=== PATIENT | female | born 1940 | race Caucasian/White ===

== ENCOUNTER 2021-04-01 12:00 | Inpatient (IN) | payer MEDICARE, BC ==
--- NOTE | 2021-04-01 12:05 | ERPHSYRPT ---
- History of Present Illness Time Seen by Provider: 04/01/21 12:05 Source: patient, EMS Exam Limitations: clinical condition Physician History: This is an 80-year-old white female patient of Dr. Marks who has significant dementia who was last seen normal per family members and friends 2 days ago. Today, the patient seemed very confused. More so than her baseline dementia. Patient arrives moving all extremities into the emergency department but is not following commands and is somewhat agitated. She does not appear to be in any pain but does not answer any questions and again not following commands. She arrives to her emergency department bed after returning from the CAT scan of her head. Her initial vital signs were heart rate in the 130s, blood pressure is in the 160s to the 180 systolic range her room air oxygenation was 93 to 94%. Allergies/Adverse Reactions: No Known Drug Allergies Allergy (Verified 04/03/15 12:39) Home Medications: Lisinopril 20 mg [Zestril 20 MG] 10 mg PO DAILY 07/05/12 [History] Zolpidem Tartrate [Ambien] 5 mg PO QHS 04/02/14 [History] Aspirin 81 mg PO DAILY 04/03/15 [History] Atorvastatin Calcium 20 mg PO DAILY 04/01/21 [History] Calcium Carb, Citrate/Vit D3 [Calcium + D3 ER Tablet] 1 each PO DAILY 04/01/21 [History] Carvedilol 3.125 mg [Coreg 3.125 MG] 3.125 mg PO BID 04/01/21 [History] Hx Tetanus, Diphtheria Vaccination/Date Given: No Hx Influenza Vaccination/Date Given: No Hx Pneumococcal Vaccination/Date Given: No - Past Medical History Pertinent Past Medical History: Yes Neurological History: No Pertinent History ENT History: Cataracts Cardiac History: High Cholesterol, Hypertension Respiratory History: Bronchitis, COPD Endocrine Medical History: No Pertinent History Musculoskeletal History: Osteoporosis GI Medical History: Ulcer History: No Pertinent History Psycho-Social History: Depression Female Reproductive Disorders: Breast Cancer - Past Surgical History Past Surgical History: Yes Neuro Surgical History: No Pertinent History Cardiac: No Pertinent History Respiratory: No Pertinent History Gastrointestinal: Appendectomy Genitourinary: No Pertinent History Musculoskeletal: No Pertinent History Female Surgical History: Lumpectomy Other Surgical History: C-Sections, right eye cataract surgery - Social History Smoking Status: Current every day smoker How long have you smoked: 40years Exposure to second hand smoke: No Drug Use: none Patient Lives Alone: No - Nursing Vital Signs Nursing Vital Signs: Initial Vital Signs Temperature 98.2 F 04/01/21 12:24 Pulse Rate 129 H 04/01/21 12:24 Respiratory Rate 18 04/01/21 12:24 Blood Pressure 191/108 04/01/21 12:24 O2 Sat by Pulse Oximetry 95 04/01/21 12:24 Pain Scale Pain Intensity 0 - Course Nursing assessment & vital signs reviewed: Yes EKG Interpreted by Me: RATE (131), Sinus Tach, NORMAL AXIS, NORMAL INTERVALS, NORMAL QRS, NORMAL ST-T, Other (No acute ischemic changes on today's EKG. The sinus tachycardia is persistent when compared to EKG dated 04/03/2015) Ordered Tests: Active Orders 24 hr Category Date Time Status Nursing Services Manager STAT Care 04/01/21 12:21 Active Catheter-Em[place] Paige STAT Care 04/01/21 12:20 Active EKG-ER Only STAT Care 04/01/21 12:20 Active IV Insertion STAT Care 04/01/21 12:20 Active NPO (ED) STAT Care 04/01/21 12:20 Active NPO (ED) STAT Care 04/01/21 13:49 Active Pulse Oximetry (ED) STAT Care 04/01/21 12:20 Active HEAD WITHOUT CONTRAST [CT] Stat Exams 04/01/21 12:01 Completed CBC W DIFF Stat Lab 04/01/21 12:20 Completed CMP Stat Lab 04/01/21 12:20 Completed CULTURE,URINE Stat Lab 04/01/21 13:02 Received UA W/RFX UR CULTURE Stat Lab 04/01/21 13:02 Completed Urine Triage Profile Stat Lab 04/01/21 13:50 Completed Medication Summary Generic Name Dose Route Start Last Admin Trade Name Freq PRN Reason Stop Dose Admin Sodium Chloride 1,000 mls @ 100 mls/hr 04/01/21 12:30 04/01/21 12:36 Sodium Chloride 0.9% 1000 Ml IV 05/01/21 12:29 100 mls/hr .Q10H DARREL Administration Discontinued Medications Generic Name Dose Route Start Last Admin Trade Name Freq PRN Reason Stop Dose Admin Hydralazine HCl 10 mg 04/01/21 14:59 04/01/21 15:11 Hydralazine Hcl 20 Mg/Ml Vial IV 04/01/21 15:00 10 mg STAT ONE Administration Hydralazine HCl Confirm 04/01/21 15:02 Hydralazine Hcl 20 Mg/Ml Vial Administered 04/01/21 15:03 Dose 20 mg .ROUTE .STK-MED ONE Ceftriaxone Sodium/Dextrose 1 g in 50 mls @ 100 mls/hr 04/01/21 13:51 04/01/21 15:11 Rocephin 1 Gm-D5w 50 Ml Bag IV 04/01/21 14:20 Infused STAT STA Infusion Ceftriaxone Sodium/Dextrose Confirm 04/01/21 14:14 Rocephin 1 Gm-D5w 50 Ml Bag Administered 04/01/21 14:15 Dose 1 g in 50 mls @ ud IV .STK-MED ONE Metoprolol Tartrate 5 mg 04/01/21 13:50 04/01/21 14:09 Metoprolol Tartrate 5 Mg/5 Ml Injection IV 04/01/21 13:51 5 mg STAT ONE Administration Metoprolol Tartrate Confirm 04/01/21 14:06 Metoprolol Tartrate 5 Mg/5 Ml Injection Administered 04/01/21 14:07 Dose 5 mg IV .STK-MED ONE Lab/Rad Data: Laboratory Result Diagrams 04/01/21 12:20 04/01/21 12:20 Laboratory Results 04/01/21 04/01/21 04/01/21 Range/Units Unknown 14:57 13:50 WBC (4.0-10.5) K/mm3 RBC (4.1-5.4) M/mm3 Hgb (12.0-16.0) gm/dl Hct (35-47) % MCV (78-100) fl MCH (26-32) pg MCHC (32-36) g/dl RDW (11.5-14.0) % Plt Count (150-450) K/mm3 MPV (7.5-11.0) fl Gran % (36.0-66.0) % Eos # (Auto) (0-0.5) Absolute Lymphs (auto) (1.0-4.6) Absolute Monos (auto) (0.0-1.3) Lymphocytes % (24.0-44.0) % Monocytes % (0.0-12.0) % Eosinophils % (0.00-5.0) % Basophils % (0.0-0.4) % Absolute Granulocytes (1.4-6.9) Basophils # (0-0.4) Sodium (137-145) mmol/L Potassium (3.5-5.1) mmol/L Chloride (98-107) mmol/L Carbon Dioxide (22-30) mmol/L Anion Gap (5-15) MEQ/L BUN (7-17) mg/dL Creatinine (0.52-1.04) mg/dL Estimated GFR ML/MIN Glucose (74-106) mg/dL Calcium (8.4-10.2) mg/dL Total Bilirubin (0.2-1.3) mg/dL AST (14-36) U/L ALT (0-35) U/L Alkaline Phosphatase (38-126) U/L Ammonia < 9 L (9-30) umol/L Serum Total Protein (6.3-8.2) g/dL Albumin (3.5-5.0) g/dL Urine Color (YELLOW) Urine Appearance (CLEAR) Urine pH (5-6) Ur Specific [place] (1.005-1.025) Urine Protein (Negative) Urine Ketones (NEGATIVE) Urine Blood (0-5) Vitaliy/ul Urine Nitrite (NEGATIVE) Urine Bilirubin (NEGATIVE) Urine Urobilinogen (0-1) mg/dL Ur Leukocyte Esterase (NEGATIVE) Urine WBC (Auto) (0-5) /HPF Urine RBC (Auto) (0-2) /HPF U Hyaline Cast (Auto) (0-2) /LPF U Epithel Cells (Auto) (FEW) /HPF Urine Bacteria (Auto) (NEGATIVE) /HPF Urine Mucus (Auto) (NEGATIVE) /HPF Urine Culture Reflexed (NO) Urine Glucose (NEGATIVE) mg/dL Urine Opiates Level NEGATIVE (NEGATIVE) Ur Methadone NEGATIVE (NEGATIVE) Urine Barbiturates NEGATIVE (NEGATIVE) Ur Phencyclidine (PCP) NEGATIVE (NEGATIVE) Urine Amphetamine NEGATIVE (NEGATIVE) U Benzodiazepine Level NEGATIVE (NEGATIVE) Urine Cocaine NEGATIVE (NEGATIVE) Urine Marijuana (THC) NEGATIVE (NEGATIVE) Influenza Type A Ag NEGATIVE (NEGATIVE) Influenza Type B Ag NEGATIVE (NEGATIVE) RSV (PCR) NEGATIVE (Negative) SARS-CoV-2 (PCR) NEGATIVE (NEGATIVE) 04/01/21 04/01/21 04/01/21 Range/Units 13:02 12:20 12:20 WBC 16.2 H (4.0-10.5) K/mm3 RBC 5.51 H (4.1-5.4) M/mm3 Hgb 15.6 (12.0-16.0) gm/dl Hct 46.9 (35-47) % MCV 85.1 (78-100) fl MCH 28.3 (26-32) pg MCHC 33.3 (32-36) g/dl RDW 16.1 H (11.5-14.0) % Plt Count 389 (150-450) K/mm3 MPV 11.3 H (7.5-11.0) fl Gran % 88.8 H (36.0-66.0) % Eos # (Auto) 0.01 (0-0.5) Absolute Lymphs (auto) 0.80 L (1.0-4.6) Absolute Monos (auto) 0.98 (0.0-1.3) Lymphocytes % 4.9 L (24.0-44.0) % Monocytes % 6.1 (0.0-12.0) % Eosinophils % 0.1 (0.00-5.0) % Basophils % 0.1 (0.0-0.4) % Absolute Granulocytes 14.38 H (1.4-6.9) Basophils # 0.02 (0-0.4) Sodium 144 (137-145) mmol/L Potassium 5.3 H (3.5-5.1) mmol/L Chloride 105 (98-107) mmol/L Carbon Dioxide 20 L (22-30) mmol/L Anion Gap 24.1 H (5-15) MEQ/L BUN 52 H (7-17) mg/dL Creatinine 2.17 H (0.52-1.04) mg/dL Estimated GFR 23.2 ML/MIN Glucose 131 H (74-106) mg/dL Calcium 9.7 (8.4-10.2) mg/dL Total Bilirubin 1.10 (0.2-1.3) mg/dL AST 41 H (14-36) U/L ALT 23 (0-35) U/L Alkaline Phosphatase 113 (38-126) U/L Ammonia (9-30) umol/L Serum Total Protein 7.8 (6.3-8.2) g/dL Albumin 4.7 (3.5-5.0) g/dL Urine Color CARLOS ENRIQUE (YELLOW) Urine Appearance CLOUDY (CLEAR) Urine pH 5.0 (5-6) Ur Specific [place] 1.028 (1.005-1.025) Urine Protein >=500 (Negative) Urine Ketones TRACE (NEGATIVE) Urine Blood MODERATE (0-5) Vitaliy/ul Urine Nitrite NEGATIVE (NEGATIVE) Urine Bilirubin NEGATIVE (NEGATIVE) Urine Urobilinogen NEGATIVE (0-1) mg/dL Ur Leukocyte Esterase LARGE (NEGATIVE) Urine WBC (Auto) >100 (0-5) /HPF Urine RBC (Auto) 16-25 (0-2) /HPF U Hyaline Cast (Auto) 3-5 (0-2) /LPF U Epithel Cells (Auto) RARE (FEW) /HPF Urine Bacteria (Auto) MODERATE (NEGATIVE) /HPF Urine Mucus (Auto) SLIGHT (NEGATIVE) /HPF Urine Culture Reflexed ORDERED SEPARATELY (NO) Urine Glucose NEGATIVE (NEGATIVE) mg/dL Urine Opiates Level (NEGATIVE) Ur Methadone (NEGATIVE) Urine Barbiturates (NEGATIVE) Ur Phencyclidine (PCP) (NEGATIVE) Urine Amphetamine (NEGATIVE) U Benzodiazepine Level (NEGATIVE) Urine Cocaine (NEGATIVE) Urine Marijuana (THC) (NEGATIVE) Influenza Type A Ag (NEGATIVE) Influenza Type B Ag (NEGATIVE) RSV (PCR) (Negative) SARS-CoV-2 (PCR) (NEGATIVE) - Progress Progress: improved, re-examined Progress Note: 04/01/21 14:01 CAT scan of the head without contrast when compared to CAT scan without contrast performed on 03/24/2015 shows a small, old left cerebellar infarct. There is atrophy and degenerative microischemia that is within normal limits for her age. There are no gross acute intracranial abnormalities. Discussed with : Phil Counseled pt/family regarding: lab results, diagnosis, rad results - Departure Departure Disposition: In-patient Admission Clinical Impression: Altered mental status, Urinary tract infection, Sinus tachycardia, Hypertension Condition: Fair Critical Care Time: Yes Critical Care Time(excluding separately billable procedures): Critical 30-74 mins (30 minutes) Referrals: DIANA MARKS [Primary Care Provider] - Follow up/PCP as directed
--- NOTE | 2021-04-01 12:19 | XRAY ---
Indication: Altered mental status. Stroke. Multiple contiguous axial images obtained through the head without contrast. Comparison: March 24, 2015. Study is slightly degraded by motion artifact throughout. Again age-appropriate global atrophy with now mild periventricular degenerative micro-ischemia bilaterally. Left cerebellum demonstrates new small focus of old infarct. No gross acute intracranial hemorrhage, abnormal extra-axial fluid collection, or mass effect. Fourth ventricle is midline without hydrocephalus. Bony calvarium grossly intact. Visualized paranasal sinuses and mastoid air cells are clear. Impression: 1. Motion artifact. 2. 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 3. Atrophy and degenerative micro-ischemia within normal limits for patient's age. 4. No gross acute intracranial abnormalities.
[2021-04-01] MEDS ORDERED: Sodium Chloride 0.9% 1000 ML 1,000 ML IV SCH ×2 (12:30→18:07)
[2021-04-01 12:50] LABS: ALBUMIN 4.7 g/dL (3.5-5.0); ANION GAP 24.1 MEQ/L (5-15); BILIRUBIN,TOTAL 1.1 mg/dL (0.2-1.3); Calcium 9.7 mg/dL (8.4-10.2); Creatinine 1 2.17 mg/dL (0.52-1.04); EST GLOMERULAR FILTRATION RATE 23.2 ML/MIN; Potassium 5.3 mmol/L (3.5-5.1); Total Protein 7.8 g/dL (6.3-8.2)
[2021-04-01 13:00] LABS: Absolute Neutrophil Ct (ANC) 14.38 (1.4-6.9); Basophil (Absolute #) 0.02 (0-0.4); Eosinophil % 0.1 % (0.00-5.0); Eosinophil (Absolute #) 0.01 (0-0.5); Hematocrit 46.9 % (35-47); Hemoglobin 15.6 gm/dl (12.0-16.0); Lymphocytes % 4.9 % (24.0-44.0); Mean Cell Volume 85.1 fl (78-100); Mean Corpuscular Hemoglobin 28.3 pg (26-32); Mean Corpuscular Hgb Concent. 33.3 g/dl (32-36); Mean Platelet Volume 11.3 fl (7.5-11.0); Monocyte (Absolute #) 0.98 (0.0-1.3); Monocytes % 6.1 % (0.0-12.0); Neutrophil % 88.8 % (36.0-66.0); Platelet Count 389 K/mm3 (150-450); Red Blood Count 5.51 M/mm3 (4.1-5.4); Red Cell Distribution Width 16.1 % (11.5-14.0); White Blood Count 16.2 K/mm3 (4.0-10.5)
[2021-04-01 13:36] LABS: Appearance CLOUDY (CLEAR); Bacteria MODERATE /HPF (NEGATIVE); Bilirubin NEGATIVE (NEGATIVE); Blood MODERATE Ery/ul (0-5); Epithelial Cells RARE /HPF (FEW); Glucose NEGATIVE (NEGATIVE); Ketones TRACE (NEGATIVE); Leukocyte Esterase LARGE (NEGATIVE); Mucus SLIGHT /HPF (NEGATIVE); Nitrite NEGATIVE (NEGATIVE); Protein,Urine Dip >=500 (Negative); Specific Gravity 1.028 (1.005-1.025); Urobilinogen NEGATIVE mg/dL (0-1); WBC >100 /HPF (0-5)
[2021-04-01] MEDS ORDERED: LOPRESSOR 5 MG/5 ML INJECTION IV ONE ×2 (13:50→14:06)
[2021-04-01] MEDS ORDERED: ROCEPHIN 1 Gm-D5w 50 ml Bag** 1 G/50 ML IVPB IV STA (13:51)
[2021-04-01] MEDS ORDERED: ROCEPHIN 1 Gm-D5w 50 ml Bag** 1 G/50 ML IVPB IV ONE (14:14)
[2021-04-01] MEDS ORDERED: APRESOLINE 20 MG/ML INJ IV ONE ×2 (14:59→17:14)
[2021-04-01] MEDS ORDERED: APRESOLINE 20 MG/ML INJ ONE ×2 (15:02→17:14)
[2021-04-01 15:11] LABS: Amphetamine,Urine NEGATIVE (NEGATIVE); Barbiturate,Urine NEGATIVE (NEGATIVE); Benzodiazepine,Urine NEGATIVE (NEGATIVE); Cocaine,Urine NEGATIVE (NEGATIVE); Methadone,Urine NEGATIVE (NEGATIVE); Opiate,Urine NEGATIVE (NEGATIVE); PCP,Urine NEGATIVE (NEGATIVE); THC,Urine NEGATIVE (NEGATIVE)
[2021-04-01 15:42] LABS: INFLUENZA A NEGATIVE (NEGATIVE); INFLUENZA B NEGATIVE (NEGATIVE); RESPIRATORY SYNCTIAL VIRUS NEGATIVE (Negative); SARS-CoV-2 Xpert Express NEGATIVE (NEGATIVE)
[2021-04-01] MEDS ORDERED: Zofran 4 MG/2 ML VIAL IV PRN (18:07)
[2021-04-01] MEDS ORDERED: FEVERALL 650 MG PR PRN (18:07)
[2021-04-01] MEDS ORDERED: Haldol 5 MG IM ONE (18:44)
[2021-04-01] MEDS: Ativan 2 MG/1 ML VIAL IV PRN ×2 (18:55→22:27)
[2021-04-01] MEDS: VASOTEC I.V. 2.5 MG IV SCH (19:06)
[2021-04-02] MEDS: VASOTEC I.V. 2.5 MG IV SCH ×2 (00:22→05:15)
[2021-04-02] MEDS: Ativan 2 MG/1 ML VIAL IV PRN (03:31)
[2021-04-02 05:23] LABS: Absolute Neutrophil Ct (ANC) 13.82 (1.4-6.9); Basophil (Absolute #) 0.04 (0-0.4); Eosinophil % 0.1 % (0.00-5.0); Eosinophil (Absolute #) 0.01 (0-0.5); Hematocrit 40.3 % (35-47); Hemoglobin 13.1 gm/dl (12.0-16.0); Lymphocyte (Absolute #) 1.09 (1.0-4.6); Lymphocytes % 6.7 % (24.0-44.0); Mean Cell Volume 87.2 fl (78-100); Mean Corpuscular Hemoglobin 28.4 pg (26-32); Mean Corpuscular Hgb Concent. 32.5 g/dl (32-36); Mean Platelet Volume 10.7 fl (7.5-11.0); Monocyte (Absolute #) 1.33 (0.0-1.3); Monocytes % 8.2 % (0.0-12.0); Neutrophil % 84.8 % (36.0-66.0); Platelet Count 261 K/mm3 (150-450); Red Blood Count 4.62 M/mm3 (4.1-5.4); Red Cell Distribution Width 16.1 % (11.5-14.0); White Blood Count 16.3 K/mm3 (4.0-10.5)
[2021-04-02 05:49] LABS: ANION GAP 19.3 MEQ/L (5-15); BILIRUBIN,TOTAL 0.6 mg/dL (0.2-1.3); Calcium 8.9 mg/dL (8.4-10.2); Creatinine 1 1.79 mg/dL (0.52-1.04); Potassium 3.9 mmol/L (3.5-5.1); Total Protein 6.4 g/dL (6.3-8.2)
[2021-04-02] MEDS: VASOTEC I.V. 2.5 MG IV PRN ×2 (07:57→20:15)
[2021-04-02] MEDS ORDERED: Levofloxacin 500MG/100ML D5W 500 MG/100 ML BAG IV SCH (10:00)
[2021-04-02] MEDS ORDERED: ROCEPHIN 1 Gm-D5w 50 ml Bag** 1 G/50 ML IVPB IV SCH (10:00)
[2021-04-02] MEDS ORDERED: ENOXAPARIN SODIUM SQ SCH (10:00)
[2021-04-02] MEDS: ENOXAPARIN SODIUM SQ SCH (11:38)
[2021-04-02] MEDS: Levaquin 250MG/50ML D5W 250 MG/50 ML BAG IV SCH (11:38)
[2021-04-02] MEDS: Dextrose 5% -0.45 NaCl 1000 ML 1,000 ML IV SCH (11:38)
[2021-04-03] MEDS: VASOTEC I.V. 2.5 MG IV PRN (02:26)
[2021-04-03] MEDS ORDERED: APRESOLINE 20 MG/ML INJ IV ONE (04:13)
[2021-04-03] MEDS: Dextrose 5% -0.45 NaCl 1000 ML 1,000 ML IV SCH (04:32)
[2021-04-03 05:38] LABS: Absolute Neutrophil Ct (ANC) 12.31 (1.4-6.9); Basophil (Absolute #) 0.02 (0-0.4); Eosinophil % 0.1 % (0.00-5.0); Eosinophil (Absolute #) 0.01 (0-0.5); Hematocrit 41.6 % (35-47); Hemoglobin 13.5 gm/dl (12.0-16.0); Lymphocyte (Absolute #) 1.25 (1.0-4.6); Lymphocytes % 8.3 % (24.0-44.0); Mean Cell Volume 87.2 fl (78-100); Mean Corpuscular Hemoglobin 28.3 pg (26-32); Mean Corpuscular Hgb Concent. 32.5 g/dl (32-36); Mean Platelet Volume 11.1 fl (7.5-11.0); Monocyte (Absolute #) 1.42 (0.0-1.3); Monocytes % 9.5 % (0.0-12.0); Platelet Count 238 K/mm3 (150-450); Red Blood Count 4.77 M/mm3 (4.1-5.4); Red Cell Distribution Width 16.2 % (11.5-14.0)
[2021-04-03 06:11] LABS: ALBUMIN 3.5 g/dL (3.5-5.0); ANION GAP 13.7 MEQ/L (5-15); BILIRUBIN,TOTAL 0.7 mg/dL (0.2-1.3); Calcium 8.2 mg/dL (8.4-10.2); Creatinine 1 1.28 mg/dL (0.52-1.04); EST GLOMERULAR FILTRATION RATE 42.6 ML/MIN; Potassium 3.6 mmol/L (3.5-5.1)
[2021-04-03] MEDS: ENOXAPARIN SODIUM SQ SCH (08:44)
[2021-04-03] MEDS: Levaquin 250MG/50ML D5W 250 MG/50 ML BAG IV SCH (08:44)
--- NOTE | 2021-04-03 08:59 | PCM.NOTE ---
Date and Time: 04/03/21854 Subjective Assessment: patient has apparently been difficult to arouse since receiving IV ativan 30 hours ago. she opens her eyes when I ask questions but does not respond to questions. Objective Exam General Appearance: no apparent distress Neurologic Exam: other (tremor present in sade hands, asterixis), No alert, No oriented x 3, No cooperative Skin Exam: normal color, warm, dry Wound Assessment: Skin/Wound Assessment Wound/Incision Assessment Start: 04/01/21 18:48 Text: Status: Active Freq: Q6H Protocol: Document 04/03/21 06:00 BA (Rec: 04/03/21 06:53 BA [id number]) Wound/Incision Assessment Elbow Wound Assessment Admission Wound Type Scratch Dressing Status Dry & Intact Drainage Amount None General Appearance Well Approximated,Clean/Dry Comment scratch ,shearing; barrier cream applied. . Respiratory Exam: normal breath sounds, lungs clear, No respiratory distress Cardiovascular Exam: regular rate/rhythm, normal heart sounds Gastrointestinal/Abdomen Exam: soft, No tenderness, No mass Extremity Exam: normal inspection, normal range of motion OBJECTIVE DATA Vital Signs: Vital Signs - 24 hr Temp Pulse Resp BP BP Pulse Ox 04/03/21 07:40 96.8 F 115 H 18 166/75 97 04/03/21 04:00 96.4 F 105 H 16 224/103 95 04/03/21 00:00 96.4 F 125 H 16 183/100 96 04/02/21 20:04 96.2 F 120 H 16 202/96 96 04/02/21 18:07 94 L 04/02/21 18:00 97.9 F 107 H 12 136/86 94 L 04/02/21 12:30 179/80 04/02/21 12:02 98.1 F 120 H 18 198/92 95 04/02/21 09:09 124/76 110 H Pain Assessment - Last Documented Pain Intensity 0 Intake and Output: Intake & Output 03/31/21 04/01/21 04/02/21 04/03/21 11:59 11:59 11:59 11:59 Intake Total 0 1948 Output Total 425 1100 Balance -425 848 Weight 46.2 kg 46.1 kg Lab Results: Lab Results-Last 24 Hours 04/03/21 04/03/21 Range/Units 04:50 04:50 WBC 15.0 H (4.0-10.5) K/mm3 RBC 4.77 (4.1-5.4) M/mm3 Hgb 13.5 (12.0-16.0) gm/dl Hct 41.6 (35-47) % MCV 87.2 (78-100) fl MCH 28.3 (26-32) pg MCHC 32.5 (32-36) g/dl RDW 16.2 H (11.5-14.0) % Plt Count 238 (150-450) K/mm3 MPV 11.1 H (7.5-11.0) fl Gran % 82.0 H (36.0-66.0) % Eos # (Auto) 0.01 (0-0.5) Absolute Lymphs (auto) 1.25 (1.0-4.6) Absolute Monos (auto) 1.42 H (0.0-1.3) Lymphocytes % 8.3 L (24.0-44.0) % Monocytes % 9.5 (0.0-12.0) % Eosinophils % 0.1 (0.00-5.0) % Basophils % 0.1 (0.0-0.4) % Absolute Granulocytes 12.31 H (1.4-6.9) Basophils # 0.02 (0-0.4) Sodium 141 (137-145) mmol/L Potassium 3.6 (3.5-5.1) mmol/L Chloride 111 H (98-107) mmol/L Carbon Dioxide 20 L (22-30) mmol/L Anion Gap 13.7 (5-15) MEQ/L BUN 33 H (7-17) mg/dL Creatinine 1.28 H (0.52-1.04) mg/dL Estimated GFR 42.6 ML/MIN Glucose 153 H (74-106) mg/dL Calcium 8.2 L (8.4-10.2) mg/dL Total Bilirubin 0.70 (0.2-1.3) mg/dL AST 323 H (14-36) U/L ALT 44 H (0-35) U/L Alkaline Phosphatase 86 (38-126) U/L Serum Total Protein 6.0 L (6.3-8.2) g/dL Albumin 3.5 (3.5-5.0) g/dL Radiology Exams: Radiology Procedures Category Date Time Status CHEST 1 VIEW (PORTABLE) Routine Exams 04/03/21 08:54 Ordered HEAD WITHOUT CONTRAST [CT] Stat Exams 04/01/21 12:01 Completed Multi-Disciplinary Progress Notes: Multi-Disciplinary Progress Notes 04/02/21 11:19 Pharmacy Note by Brock King Lovenox dose reduced to 30mg per renal dosing policy. Estimated crcl is 18ml/min. Initialized on 04/02/21 11:19 - END OF NOTE Assessment/Plan (1) Altered mental status Current Visit: Yes Status: Acute Assessment & Plan: ast increasing, exam suspicious for hepatic encephalopathy, urine culture has been negative so source of infection is uncertain. suspect possible liver pathology, i.e. cholangitis or cholecystitis. will change abx selection zosyn for broader coverage to include anaerobes and check ultrasound liver Code(s): R41.82 - ALTERED MENTAL STATUS, UNSPECIFIED (2) Urinary tract infection Current Visit: Yes Status: Acute Code(s): N39.0 - URINARY TRACT INFECTION, SITE NOT SPECIFIED (3) Dementia Current Visit: No Status: Acute Code(s): F03.90 - UNSPECIFIED DEMENTIA WITHOUT BEHAVIORAL DISTURBANCE
[2021-04-03] MEDS ORDERED: Catapres-TTS 1 PATCH TOP SCH (10:00)
[2021-04-03] MEDS: Zosyn 2.25 GM 2.25 GM in Sodium Chloride 100ML MINI-BAG PLUS 100 ML IV SCH ×3 (11:16→23:28)
[2021-04-03] MEDS: APRESOLINE 20 MG/ML INJ IV PRN (16:46)
--- NOTE | 2021-04-03 18:55 | XRAY ---
Indication: Acute mental status change. Comparison: August 03, 2006 Portable chest remains clear again with incidental right lung calcified granuloma. Heart not enlarged with aortic calcifications. Bony thorax intact with mild osteopenia and mild degenerative changes. Impression: Nonacute chest with chronic features Comment: Preliminary interpretation made by [facility]. No critical discrepancy.
[2021-04-03] MEDS ORDERED: [UNRECOGNIZED DRUG - NUTRITION] IV SCH (19:00)
[2021-04-03] MEDS ORDERED: [UNRECOGNIZED DRUG - NUTRITION] IV ONE (19:00)
[2021-04-04] MEDS: APRESOLINE 20 MG/ML INJ IV PRN ×2 (00:16→20:30)
[2021-04-04] MEDS: Zosyn 2.25 GM 2.25 GM in Sodium Chloride 100ML MINI-BAG PLUS 100 ML IV SCH ×3 (05:39→17:01)
--- NOTE | 2021-04-04 07:39 | PCM.NOTE ---
Date and Time: 04/04/21 0736 Subjective Assessment: patient responds to voice and makes eye contact but doesn't speak or answer any of my questions. she was unable to participate in speech therapy evaluation yesterday so TPN was started. Objective Exam General Appearance: no apparent distress Neurologic Exam: alert, oriented x 3 Wound Assessment: Skin/Wound Assessment Wound/Incision Assessment Start: 04/01/21 18 :48 Text: Status: Active Freq: Q6H Protocol: Document 04/04/21 06:00 BA (Rec: 04/04/21 06:23 BA [id number]) Wound/Incision Assessment Elbow Wound Assessment Admission Wound Type Scratch Dressing Status Dry & Intact Drainage Amount None General Appearance Well Approximated,Clean/Dry Comment scratch ,shearing; barrier cream applied.. Respiratory Exam: normal breath sounds, lungs clear, No respiratory distress Cardiovascular Exam: regular rate/rhythm, normal heart sounds Gastrointestinal/Abdomen Exam: soft, No tenderness, No mass OBJECTIVE DATA Vital Signs: Vital Signs - 24 hr Temp Pulse Resp BP BP Pulse Ox 04/04/21 07:23 98.4 F 123 H 16 141/95 96 04/04/21 04:00 97.3 F 124 H 16 167/62 95 04/04/21 00:00 96.9 F 111 H 16 236/102 97 04/03/21 20:00 97.1 F 124 H 16 153/76 94 L 04/03/21 18:00 94 L 04/03/21 16:00 97.1 F 140 H 20 186/119 96 04/03/21 11:44 98.9 F 118 H 16 137/84 94 L 04/03/21 07:40 96.8 F 115 H 18 166/75 97 Pain Assessment - Last Documented Pain Intensity 0 Intake and Output: Intake & Output 04/01/21 04/02/21 04/03/21 04/04/21 11:59 11:59 11:59 11:59 Intake Total 0 1948 1669 Output Total 425 1100 1050 Balance -425 848 619 Weight 46.2 kg 46.1 kg 46.3 kg Lab Results: Lab Results-Last 24 Hours 04/03/21 Range/Units 09:20 Ammonia < 9 L (9-30) umol/L Radiology Exams: Radiology Procedures Category Date Time Status CHEST 1 VIEW (PORTABLE) Routine Exams 04/03/21 08:54 Completed LIVER OR SPLEEN [US] Routine Exams 04/05/21 00:00 Ordered Assessment/Plan (1) Altered mental status Current Visit: Yes Status: Acute Assessment & Plan: patient nonconversant, want to repeat head ct as I suspect a possible ischemic stroke since otherwise her workup has been unrevealing of a source Code(s): R41.82 - ALTERED MENTAL STATUS, UNSPECIFIED (2) Urinary tract infection Current Visit: Yes Status: Acute Assessment & Plan: changed to zosyn due to increased LFTs, liver ultrasound still pending that was ordered yesterday. Code(s): N39.0 - URINARY TRACT INFECTION, SITE NOT SPECIFIED (3) Dementia Current Visit: No Status: Acute Code(s): F03.90 - UNSPECIFIED DEMENTIA WITHOUT BEHAVIORAL DISTURBANCE
[2021-04-04] MEDS: Dextrose 5% -0.45 NaCl 1000 ML 1,000 ML IV SCH ×2 (07:56→08:01)
[2021-04-04] MEDS: ENOXAPARIN SODIUM SQ SCH (08:36)
[2021-04-04 09:41] LABS: Absolute Neutrophil Ct (ANC) 10.52 (1.4-6.9); Basophil (Absolute #) 0.01 (0-0.4); Eosinophil % 0.1 % (0.00-5.0); Eosinophil (Absolute #) 0.01 (0-0.5); Hematocrit 39.1 % (35-47); Lymphocyte (Absolute #) 0.76 (1.0-4.6); Lymphocytes % 6.1 % (24.0-44.0); Mean Cell Volume 86.1 fl (78-100); Mean Corpuscular Hemoglobin 28.6 pg (26-32); Mean Corpuscular Hgb Concent. 33.2 g/dl (32-36); Mean Platelet Volume 11.2 fl (7.5-11.0); Monocyte (Absolute #) 1.15 (0.0-1.3); Monocytes % 9.2 % (0.0-12.0); Neutrophil % 84.5 % (36.0-66.0); Platelet Count 219 K/mm3 (150-450); Red Blood Count 4.54 M/mm3 (4.1-5.4); Red Cell Distribution Width 15.9 % (11.5-14.0); White Blood Count 12.5 K/mm3 (4.0-10.5)
[2021-04-04] MEDS: Haldol 5 MG IM PRN ×2 (10:06→18:24)
[2021-04-04 10:23] LABS: INR 1.1 (0.8-3.0)
[2021-04-04 10:30] LABS: ALBUMIN 3.2 g/dL (3.5-5.0); ANION GAP 11.9 MEQ/L (5-15); BILIRUBIN,TOTAL 0.6 mg/dL (0.2-1.3); Calcium 8.5 mg/dL (8.4-10.2); Creatinine 1 1.28 mg/dL (0.52-1.04); EST GLOMERULAR FILTRATION RATE 42.6 ML/MIN; Total Protein 5.6 g/dL (6.3-8.2)
[2021-04-04] MEDS ORDERED: [UNRECOGNIZED DRUG - NUTRITION] IV SCH ×4 (14:00)
--- NOTE | 2021-04-04 19:05 | XRAY ---
Indication: Follow-up mental status change. Multiple contiguous axial images obtained through the head without contrast. Comparison: April 01, 2021. There remains mild motion artifact limiting study. Stable age-appropriate global atrophy, mild periventricular degenerative microischemia, and small old infarct left cerebellum. No obvious acute intracranial hemorrhage, abnormal extra-axial fluid collection, or mass effect. Fourth ventricle is midline without hydrocephalus. Bony calvarium intact. Visualized paranasal sinuses and mastoid air cells are clear. Impression: 1. Again motion artifact limits exam. 2. Stable atrophy, degenerative microischemia, and small old infarct left cerebellum. 3. No new or acute intracranial abnormalities. Comment: Preliminary interpretation made by [facility]. No critical discrepancy.
[2021-04-04] MEDS: VASOTEC I.V. 2.5 MG IV PRN (23:45)
[2021-04-05] MEDS: Zosyn 2.25 GM 2.25 GM in Sodium Chloride 100ML MINI-BAG PLUS 100 ML IV SCH ×4 (00:04→17:34)
[2021-04-05] MEDS: APRESOLINE 20 MG/ML INJ IV PRN (05:30)
[2021-04-05 05:53] LABS: Hematocrit 36.3 % (35-47); Mean Cell Volume 85.8 fl (78-100); Mean Corpuscular Hemoglobin 28.4 pg (26-32); Mean Corpuscular Hgb Concent. 33.1 g/dl (32-36); Mean Platelet Volume 10.7 fl (7.5-11.0); Platelet Count 198 K/mm3 (150-450); Red Blood Count 4.23 M/mm3 (4.1-5.4); Red Cell Distribution Width 15.8 % (11.5-14.0); White Blood Count 11.8 K/mm3 (4.0-10.5)
[2021-04-05] MEDS ORDERED: HUMALOG SQ PRN (06:53)
[2021-04-05 06:58] LABS: ANION GAP 9.4 MEQ/L (5-15); BILIRUBIN,TOTAL 0.4 mg/dL (0.2-1.3); Calcium 8.1 mg/dL (8.4-10.2); Creatinine 1 1.24 mg/dL (0.52-1.04); EST GLOMERULAR FILTRATION RATE 44.2 ML/MIN; MAGNESIUM 1.8 mg/dL (1.6-2.3); Total Protein 5.7 g/dL (6.3-8.2)
[2021-04-05 07:10] LABS: Potassium 2.7 mmol/L (3.5-5.1)
[2021-04-05 07:35] LABS: ANISOCYTOSIS 1+; BAND 2 % (0.0-2.0); Lymphocytes 9 % (24-44); Monocyte 3 % (0.0-12.0); Neutrophils 86 % (36.0-66.0); Platelet Estimate NORMAL (NORMAL); Total Cells Counted 100
[2021-04-05] MEDS ORDERED: Sodium Chloride 0.9% 500 ML 500 ML IV ONE (10:06)
[2021-04-05] MEDS: POTASSIUM CHLORIDE 20 mEq IN WATER 100ML 20 MEQ/100 ML BAG IV SCH ×2 (10:09→12:27)
[2021-04-05] MEDS: ENOXAPARIN SODIUM SQ SCH (10:10)
--- NOTE | 2021-04-05 10:40 | XRAY ---
Indication: Elevated bilirubin. Two-dimensional right upper quadrant abdominal sonogram performed. Comparison: None Visualized liver and pancreas appears homogeneous in echogenicity without organomegaly or ascites. Gallbladder normally distended with a few tiny gallstones, largest 8mm. No abnormal gallbladder wall thickening or pericholecystic fluid. Common bile duct measures 2.7 mm. No intrahepatic biliary distention. Right kidney is atrophic measuring 5.8 cm in length with a 1 cm exophytic cyst. No suspicious solid renal mass or hydronephrosis. Impression: 1. Cholelithiasis without cholecystitis or biliary distention. 2. Right renal atrophy with small cyst.
[2021-04-05] MEDS ORDERED: [UNRECOGNIZED DRUG - NUTRITION] IV SCH ×4 (10:45)
[2021-04-05] MEDS: VASOTEC I.V. 2.5 MG IV PRN (16:37)
[2021-04-05] MEDS: [UNRECOGNIZED DRUG - NUTRITION] IV SCH ×4 (21:30)
[2021-04-06] MEDS: APRESOLINE 20 MG/ML INJ IV PRN ×2 (02:28→07:53)
[2021-04-06 05:17] LABS: Hematocrit 33.2 % (35-47); Hemoglobin 10.8 gm/dl (12.0-16.0); Mean Cell Volume 87.1 fl (78-100); Mean Corpuscular Hemoglobin 28.3 pg (26-32); Mean Corpuscular Hgb Concent. 32.5 g/dl (32-36); Mean Platelet Volume 10.9 fl (7.5-11.0); Platelet Count 191 K/mm3 (150-450); Red Blood Count 3.81 M/mm3 (4.1-5.4); Red Cell Distribution Width 16.1 % (11.5-14.0); White Blood Count 12.3 K/mm3 (4.0-10.5)
[2021-04-06] MEDS: Zosyn 2.25 GM 2.25 GM in Sodium Chloride 100ML MINI-BAG PLUS 100 ML IV SCH ×4 (05:19→13:12)
[2021-04-06] MEDS: VASOTEC I.V. 2.5 MG IV PRN (05:19)
[2021-04-06 05:42] LABS: ALBUMIN 2.6 g/dL (3.5-5.0); ANION GAP 8.8 MEQ/L (5-15); BILIRUBIN,TOTAL 0.4 mg/dL (0.2-1.3); Creatinine 1 1.15 mg/dL (0.52-1.04); EST GLOMERULAR FILTRATION RATE 48.3 ML/MIN; Potassium 3.5 mmol/L (3.5-5.1)
[2021-04-06] MEDS: ENOXAPARIN SODIUM SQ SCH (13:23)
[2021-04-06] MEDS ORDERED: [UNRECOGNIZED DRUG - OTHER] IV SCH ×5 (14:00)
[2021-04-06] MEDS ORDERED: CLINIMIX E IV SCH ×5 (14:00)
[2021-04-06] MEDS ORDERED: INTRALIPID 20% IV SCH ×5 (14:00)
[2021-04-06] MEDS: [UNRECOGNIZED DRUG - NUTRITION] IV SCH ×4 (16:05)
[2021-04-06 18:38] VITALS: BP 210/90; PULSE 109; O2SAT 97
[2021-04-09 16:55] LABS: Lymphocytes 6 % (24-44); Monocyte 8 % (0.0-12.0); Neutrophils 86 % (36.0-66.0); Total Cells Counted 100
[2021-04-09 16:57] LABS: ANISOCYTOSIS 1+
--- NOTE | 2021-04-20 11:29 | HP ---
CHIEF COMPLAINT: Increasing confusion, dementia. HISTORY OF PRESENT ILLNESS: The patient's family had noted the patient to have increasing and becoming somewhat agitated. She was brought to the emergency room for evaluation and kept in the hospital for evaluation and treatment and probable mcfp placement. The patient's vital signs on admission showed her temperature to be 98.2F, pulse 129, respiratory rate 18 and blood pressure 191/108. O2 saturation 95%. PAST MEDICAL/SURGICAL HISTORY: The patient has history of hypertension, hyperlipidemia. The patient's medical history is otherwise significant for chronic obstructive pulmonary disease, osteoporosis, depression, previous breast cancer. She has had appendectomy, lumpectomy, section and right cataract eye surgery. HOME MEDICATIONS: Lisinopril 20 mg daily, Ambien 5 mg at night, aspirin 81 mg a day, atorvastatin 20 mg a day, calcium tablets twice a day, carvedilol 3.125 mg twice a day. ALLERGIES: NKDA. PHYSICAL EXAMINATION: HEENT: Normocephalic, atraumatic. Pupils equal round reactive to light. Extraocular movements intact. Oropharynx was unable to observe. NECK: Supple without lymphadenopathy, thyromegaly or JVD. CHEST: Appeared to be clear to auscultation. HEART: Rapid but no murmurs, rubs or gallops heard. ABDOMEN: Soft. No palpable masses. EXTREMITIES: Without cyanosis, clubbing or edema. NEUROLOGIC: The patient was essentially unresponsive except to somewhat noxious stimuli. LAB DATA AND TESTS: The patient had an EKG showing sinus tachycardia with no obvious ST depression or elevation. Her UA showed greater than 100 white blood cells per high power field, 16-25 red blood cells, specific gravity 1.028 and greater than 500 protein. Her metabolic panel showed a potassium slightly high at 5.3. Creatinine was 2.17. Nonfasting glucose was 131. AST and ALT were normal. She had white count of 16.2, hemoglobin 15.6 and PLT count was normal at 389,000. ASSESSMENT: A patient with increasing dementia likely worsened secondary to urinary tract infection. Urine cultures have been obtained. She was placed on IV antibiotics. She also receive gentle hydration as she appeared to have acute on chronic renal insufficiency. The likelihood the patient will be candidate for mcfp placement after her acute care hospital setting is over as the patient has been dealing with dementia issues over the past several months to last year or better and they had already expressed the desire to have placed for improved overall health care.
--- NOTE | 2021-04-20 11:39 | DS ---
DISCHARGE DIAGNOSES: 1) URINARY TRACT INFECTION. 2) ACUTE ON CHRONIC RENAL INSUFFICIENCY. 3) DEMENTIA. HOSPITAL COURSE: The patient is an 80-year-old white female who had been experiencing dementia problems at home over the past several months. She apparently had increasing worsening and currently more agitated at home. She was brought to the emergency room and found to have a urinary tract infection. She was brought into the hospital and given IV antibiotics. She appeared to have acute on chronic renal insufficiency so IV fluids were also given. The patient did improve with these. We had evaluation by physical therapy and occupational therapy. The patient was essentially not a candidate for rehab at this time, as she cannot follow commands. The patient was felt to be ready for discharge after treatment of the acute renal insufficiency and antibiotic of Levaquin for urinary tract infection. The patient by 04/06/2021 was able to follow with her eyes but still had no response to verbal stimuli. After discussion with the family, the patient was considered to be ready for discharge either to Hospice care or to being admitted to a nursing care facility. She will continue the Levaquin for additional three days and follow up in the office if possible in the next week.
== END 2021-04-06 18:47 | DRG 690 ==
LOC: ED 12:00 → MED SURG 17:28
PROVIDERS: ADMIT Family Medicine; ATTEND Family Medicine
DX: N39.0 Urinary tract infection, site not specified (principal); R41.82 Altered mental status, unspecified; I16.0 Hypertensive urgency; R00.0 Tachycardia, unspecified; F03.90 Unspecified dementia, unspecified severity, without behavioral disturbance, psychotic disturbance, mood disturbance, and anxiety; Z20.828 Contact with and (suspected) exposure to other viral communicable diseases; Z79.899 Other long term (current) drug therapy; I12.9 Hypertensive chronic kidney disease with stage 1 through stage 4 chronic kidney disease, or unspecified chronic kidney disease; N18.9 Chronic kidney disease, unspecified
CPT/HCPCS: 0241U; 36000; 36415; 51702; 70450; 71045; 76705; 80053; 80307; 81001; 82140; 82947; 83735; 84132; 85025; 85610; 87086; 92526; 92610; 93005; 93041; 94760; 96365; 96374; 96375; 96376; 99285; 99291; J0360; J0696; J1630; J1650; J1956; J2060; J2543; J3480; A9270-GY

== ENCOUNTER 2021-05-05 09:20 | Emergency (ER) | payer MEDICARE, BC ==
[2021-05-05 09:33] VITALS: BP 121/54
[2021-05-05] MEDS ORDERED: NORCO 5/325 MG PO ONE (09:49)
[2021-05-05] MEDS ORDERED: NORCO 5/325 MG ONE (09:52)
--- NOTE | 2021-05-05 09:56 | ERPHSYRPT ---
- History of Present Illness Time Seen by Provider: 05/05/21 09:23 Source: patient, EMS, [facility] records Exam Limitations: clinical condition Patient Subjective Stated Complaint: " I fell " Triage Nursing Assessment: Pt presents to ER from ambulance from [facility]. 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 Pt has noted dementia and unable to answer questions appropriately. Pt is alert. Pt skin is pink, warm, and dry. Pt complains of neck pain, c-collar in place per EMS. Pt complains of left hip pain upon exam. Pt respirations are easy and unlabored. EMS state that pt did not have any LOC. Pt doesn't have any obvious trauma or deformities, does have some tenderness to neck and left hip. Pt has no further complaints. Physician History: 81-year-old female with history of dementia currently resident of prison was walking in the dining area, slipped on the wet floor on her left hip without loss of consciousness. Unsure about hitting her head. She is complaining of pain in the neck and left hip. C-collar is applied prior to arrival. Denies any chest or abdominal pain, no back pain. Not a good historian and history is limited secondary to her dementia. Per prison patient's level of consciousness attacked her baseline. Occurred: just prior to arrival Reason for Fall: slipped Injuries/Pain Location: neck, pelvis, lower extremity Loss of Consciousness: no loss of consciousness Quality: aching Severity of Pain-Max: moderate Severity of Pain-Current: mild Associated Symptoms (Fall): extremity injury, No back pain, No chest pain, No shortness of breath, No slurred speech, No vomiting Allergies/Adverse Reactions: No Known Drug Allergies Allergy (Verified 05/05/21 09:33) Home Medications: Lisinopril 20 mg [Zestril 20 MG] 20 mg PO DAILY 07/05/12 [History] Zolpidem Tartrate [Ambien] 5 mg PO QHS 04/02/14 [History] Aspirin 81 mg PO DAILY 04/03/15 [History] Atorvastatin Calcium 20 mg PO DAILY 04/01/21 [History] Calcium Carb, Citrate/Vit D3 [Calcium + D3 ER Tablet] 1 each PO DAILY 04/01/21 [History] Carvedilol 3.125 mg [Coreg 3.125 MG] 3.125 mg PO BID 04/01/21 [History] Amlodipine Besylate 5 mg [Norvasc 5 mg] 5 mg PO DAILY 04/02/21 [History] Gabapentin 100 mg [Neurontin 100 MG] 100 mg PO HS 04/02/21 [History] Melatonin 5 mg PO HS 05/05/21 [History] Hx Tetanus, Diphtheria Vaccination/Date Given: No (UNKNOWN) Hx Influenza Vaccination/Date Given: No (UNKNOWN) Hx Pneumococcal Vaccination/Date Given: No (UNKNOWN) Immunizations Up to Date: No (UNKNOWN) Travel Risk - International Travel Have you traveled outside of the country in past 3 weeks: No - Coronavirus Screening Are you exhibiting any of the following symptoms?: No Close contact with a COVID-19 positive Pt in past 14-21 Days: No - Vaccine Status Have you recieved a Covid-19 vaccination: (UNKNOWN) 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 - Vaccination Dates Dates if Unknown: UNKNOWN - Review of Systems All Other Systems: Unable due to dementia - Past Medical History Pertinent Past Medical History: Yes Neurological History: Dementia ENT History: Cataracts Cardiac History: High Cholesterol, Hypertension Respiratory History: Bronchitis, COPD Endocrine Medical History: No Pertinent History Musculoskeletal History: Osteoporosis GI Medical History: Ulcer History: No Pertinent History Psycho-Social History: Depression Female Reproductive Disorders: Breast Cancer Other Medical History: dementia - Past Surgical History Past Surgical History: Yes Neuro Surgical History: No Pertinent History Cardiac: No Pertinent History Respiratory: No Pertinent History Gastrointestinal: Appendectomy Genitourinary: No Pertinent History Musculoskeletal: No Pertinent History Female Surgical History: Lumpectomy Other Surgical History: C-Sections, right eye cataract surgery - Social History Smoking Status: Unknown if ever smoked How long have you smoked: 40years Exposure to second hand smoke: No Drug Use: none Patient Lives Alone: No - Female History Hx Now: No - Nursing Vital Signs Nursing Vital Signs: Initial Vital Signs Temperature 96.6 F 05/05/21 09:24 Pulse Rate 59 L 05/05/21 09:24 Respiratory Rate 18 05/05/21 09:24 Blood Pressure 121/54 05/05/21 09:24 O2 Sat by Pulse Oximetry 100 05/05/21 09:24 Pain Scale Pain Intensity 3 - [place] Coma Score Best Eye Response (Braydon): (4) open spontaneously Best Verbal Response ([place]): (4) confused conversation Best Motor Response (Braydon): (6) obeys commands [place] Total: 14 - Physical Exam General Appearance: no apparent distress, alert Head Injury: No Vega's Sign, No contusions, No lacerations, No raccoon eyes, No swelling Eye Exam: PERRL/EOMI, eyes nml inspection ENT Exam: airway nml, No evidence of ENT injury, No dental injury Neck Exam: supple, trachea midline, normal alignment, c-collar in place, No muscle spasm, No tenderness Respiratory/Chest Exam: normal breath sounds, respiratory distress, No chest tenderness Cardiovascular Exam: normal heart sounds, regular rate/rhythm Gastrointestinal Exam: soft, normal bowel sounds, No tenderness Back Exam: normal inspection, normal range of motion Extremity Exam: normal inspection, normal range of motion, hip tenderness (Left. No lower extremity shortening or external rotation. Intact range of motion) Neurologic Exam: alert, cooperative, sensation nml, No normal mood/affect, No motor deficits, No motor weakness Skin Exam: normal color SpO2 Interpretation: normal SpO2: 100 O2 Delivery: Room Air Ordered Tests: Active Orders 24 hr Category Date Time Status CERVICAL SPINE WO CONTRAST [CT] Stat Exams 05/05/21 09:48 Completed CHEST 1 VIEW (PORTABLE) Stat Exams 05/05/21 09:52 Completed HEAD WITHOUT CONTRAST [CT] Stat Exams 05/05/21 09:48 Completed HIP UNI (2V) INCL PEL IF DONE Stat Exams 05/05/21 Completed Medication Summary Discontinued Medications Generic Name Dose Route Start Last Admin Trade Name Krissy PRN Reason Stop Dose Admin Hydrocodone Bitart/Acetaminophen 1 tab 05/05/21 09:49 05/05/21 09:52 Hydrocodone/Apap 5/325 Mg Tablet PO 05/05/21 09:50 1 tab STAT ONE Administration Hydrocodone Bitart/Acetaminophen Confirm 05/05/21 09:52 Hydrocodone/Apap 5/325 Mg Tablet Administered 05/05/21 09:53 Dose 1 tab .ROUTE .STK-MED ONE - Progress Progress: improved, re-examined Progress Note: 05/05/21 10:53 CT head and cervical spine are negative for acute trauma related findings. X- ray left hip did not show any fracture dislocation. Chest x-ray negative. Patient has nonfocal neuro exam. Given symptomatic treatment for pain. Feeling somewhat better. C-collar is removed and is able to move her neck in all di rection without any limitation. It was a clear mechanical fall, do not think needs any other work-up and is stable for discharge with outpatient follow-up. Recommended ambulation with walker/cane to avoid falls. Counseled pt/family regarding: diagnosis, need for follow-up, rad results - Departure Departure Disposition: Home Clinical Impression: Neck muscle strain, Contusion, hip Fall Qualifiers: Encounter type: initial encounter Qualified Code(s): W19.XXXA - Unspecified fall, initial encounter Condition: Stable Critical Care Time: No Referrals: DIANA VAZQUEZ [Primary Care Provider] - Follow up/PCP as directed (1-2 days for reevaluation) Instructions: Preventing Falls, Closed Head Injury (DC) Additional Instructions: Follow head injury instructions and return to ER for any worsening like altered mentation, numbness tingling focal weakness, difficulty speech etc. Take Tylenol as needed. Use walker/cane for ambulation of the time to avoid another fall. Do not take ibuprofen.
--- NOTE | 2021-05-05 10:23 | XRAY ---
Indication: Status post fall. Multiple contiguous axial images obtained through the head without contrast. Comparison: April 04, 2021. 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 No acute intracranial hemorrhage, abnormal extra-axial fluid collection, or mass effect. Fourth ventricle is midline without hydrocephalus. Bony calvarium intact. Visualized paranasal sinuses and mastoid air cells are clear. 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
--- NOTE | 2021-05-05 10:25 | XRAY ---
Indication: Status post fall. Multiple contiguous axial images obtained through the cervical spine. Sagittal and coronal reformatted images obtained. Comparison: None Osseous structures demineralized consistent with patient's age. Nonunited posterior arch C1 is a normal variant. Axial images negative for acute fracture, suspicious bony lesions, or spinal canal stenosis. Mild/moderate C3-C7 degenerative endplate spurring. Also moderate atlantoaxial degenerative changes. Sagittal and coronal reformatted images demonstrate normal alignment with C3-C7 disc space narrowing. No acute compression fracture, subluxation, or jumped facet. Normal appearing craniocervical junction. Visualized noncontrasted soft tissues demonstrates moderate right and mild left carotid calcifications. Lung apices are clear. Impression: 1. Negative acute fracture/subluxation. 2. Osteopenia and multilevel degenerative changes.
--- NOTE | 2021-05-05 10:45 | XRAY ---
Indication: Status post fall. Comparison: April 03, 2021. Portable chest remains hyperinflated and clear with incidental right mid lung calcified granuloma. Heart not enlarged. Bony thorax intact again with osteopenia and degenerative changes. No new/acute findings.
--- NOTE | 2021-05-05 10:45 | XRAY ---
Indication: Status post fall. Comparison: None 2 view left hip demonstrates osteopenia, mild lower lumbar degenerative spondylosis, 1.6 cm uterine calcified fibroid, and minimal scattered vascular calcifications. No other bony, articular, or soft tissue abnormalities.
[2021-05-05 11:00] VITALS: PULSE 79; O2SAT 97
== END 2021-05-05 11:12 | disposition home or self-care (01) ==
LOC: ED 09:20
DX: S70.02XA Contusion of left hip, initial encounter (principal); S16.1XXA Strain of muscle, fascia and tendon at neck level, initial encounter; W01.0XXA Fall on same level from slipping, tripping and stumbling without subsequent striking against object, initial encounter; Y92.128 Other place in nursing home as the place of occurrence of the external cause; F03.90 Unspecified dementia, unspecified severity, without behavioral disturbance, psychotic disturbance, mood disturbance, and anxiety; E78.5 Hyperlipidemia, unspecified; I10 Essential (primary) hypertension; J44.9 Chronic obstructive pulmonary disease, unspecified; Z79.899 Other long term (current) drug therapy
CPT/HCPCS: 70450; 71045; 72125; 73502; 99284; A9270-GY

== ENCOUNTER 2021-06-19 13:38 | Emergency (ER) | payer MEDICARE, BC ==
[2021-06-19] MEDS ORDERED: Sodium Chloride 0.9% 1000 ML 1,000 ML IV STA (13:44)
[2021-06-19] MEDS ORDERED: Sodium Chloride 0.9% 1000 ML 1,000 ML ONE (13:55)
[2021-06-19 15:04] LABS: Absolute Neutrophil Ct (ANC) 2.63 (1.4-6.9); Basophil (Absolute #) 0 (0-0.4); Eosinophil (Absolute #) 0.04 (0-0.5); Hemoglobin 10.6 gm/dl (12.0-16.0); Lymphocyte (Absolute #) 0.89 (1.0-4.6); Lymphocytes % 22.6 % (24.0-44.0); Mean Cell Volume 90.7 fl (78-100); Mean Corpuscular Hgb Concent. 33.1 g/dl (32-36); Mean Platelet Volume 10.6 fl (7.5-11.0); Monocyte (Absolute #) 0.38 (0.0-1.3); Monocytes % 9.6 % (0.0-12.0); Neutrophil % 66.8 % (36.0-66.0); Platelet Count 218 K/mm3 (150-450); Red Blood Count 3.53 M/mm3 (4.1-5.4); Red Cell Distribution Width 16.2 % (11.5-14.0); White Blood Count 3.9 K/mm3 (4.0-10.5)
[2021-06-19 15:27] LABS: ALBUMIN 2.5 g/dL (3.5-5.0); ANION GAP 9.1 MEQ/L (5-15); BILIRUBIN,TOTAL 0.5 mg/dL (0.2-1.3); Calcium 7.5 mg/dL (8.4-10.2); Creatinine 1 1.22 mg/dL (0.52-1.04); MAGNESIUM 1.6 mg/dL (1.6-2.3); Potassium 4.4 mmol/L (3.5-5.1); Total Protein 4.8 g/dL (6.3-8.2)
--- NOTE | 2021-06-19 15:48 | ERPHSYRPT ---
- History of Present Illness Time Seen by Provider: 06/19/21 13:45 Source: EMS Exam Limitations: clinical condition Patient Subjective Stated Complaint: PER EMS pt had an unwitnessed fall today by nurses station, pt had a similar episode previously Triage Nursing Assessment: Pt awake and oriented to self, pt has hx of dementia, pt denies any pain at this time, R AC 18 g established per ems with 500 mL bag normal saline Physician History: Patient is a demented 81-year-old white female who suffered an unwitnessed fall at the half-way. Her dementia is chronic and she has had previous falls. Her blood pressure associated with this fall was 80/40. EMS reports that she has no obvious injury and they could elicit no response to anything painful. Occurred: just prior to arrival Reason for Fall: unknown Injuries/Pain Location: no injury Loss of Consciousness: no loss of consciousness Severity of Pain-Max: none Severity of Pain-Current: none Modifying Factors: Improves With: nothing Allergies/Adverse Reactions: No Known Drug Allergies Allergy (Verified 05/05/21 09:33) Home Medications: Lisinopril 20 mg [Zestril 20 MG] 20 mg PO DAILY 07/05/12 [History] Zolpidem Tartrate [Ambien] 5 mg PO QHS 04/02/14 [History] Aspirin 81 mg PO DAILY 04/03/15 [History] Atorvastatin Calcium 20 mg PO DAILY 04/01/21 [History] Calcium Carb, Citrate/Vit D3 [Calcium + D3 ER Tablet] 1 each PO DAILY 04/01/21 [History] Carvedilol 3.125 mg [Coreg 3.125 MG] 3.125 mg PO BID 04/01/21 [History] Amlodipine Besylate 5 mg [Norvasc 5 mg] 5 mg PO DAILY 04/02/21 [History] Gabapentin 100 mg [Neurontin 100 MG] 100 mg PO HS 04/02/21 [History] Melatonin 5 mg PO HS 05/05/21 [History] Hx Tetanus, Diphtheria Vaccination/Date Given: No (UNKNOWN) Hx Influenza Vaccination/Date Given: Yes (UNKNOWN) Hx Pneumococcal Vaccination/Date Given: Yes (UNKNOWN) Immunizations Up to Date: No Travel Risk - International Travel Have you traveled outside of the country in past 3 weeks: No - Coronavirus Screening Are you exhibiting any of the following symptoms?: No Close contact with a COVID-19 positive Pt in past 14-21 Days: No - Vaccine Status Have you recieved a Covid-19 vaccination: (UNKNOWN) 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 - Vaccination Dates Dates if Unknown: UNKNOWN - Review of Systems All Other Systems: Unable due to dementia - Past Medical History Pertinent Past Medical History: Yes Neurological History: Dementia ENT History: Cataracts Cardiac History: High Cholesterol, Hypertension Respiratory History: Bronchitis, COPD Endocrine Medical History: No Pertinent History Musculoskeletal History: Osteoporosis GI Medical History: Ulcer History: No Pertinent History Psycho-Social History: Depression Female Reproductive Disorders: Breast Cancer Other Medical History: dementia - Past Surgical History Past Surgical History: Yes Neuro Surgical History: No Pertinent History Cardiac: No Pertinent History Respiratory: No Pertinent History Gastrointestinal: Appendectomy Genitourinary: No Pertinent History Musculoskeletal: No Pertinent History Female Surgical History: Lumpectomy Other Surgical History: C-Sections, right eye cataract surgery - Social History Smoking Status: Unknown if ever smoked How long have you smoked: 40years Exposure to second hand smoke: No Drug Use: none Patient Lives Alone: No - Nursing Vital Signs Nursing Vital Signs: Initial Vital Signs Temperature 97.4 F 06/19/21 13:40 Pulse Rate 77 06/19/21 13:40 Respiratory Rate 16 06/19/21 13:40 Blood Pressure 102/44 06/19/21 13:40 O2 Sat by Pulse Oximetry 94 L 06/19/21 13:40 Pain Scale Pain Intensity 0 - [place] Coma Score Best Eye Response (Braydon): (3) open to voice Best Verbal Response ([place]): (4) confused conversation Best Motor Response (Bray[place]): (6) obeys commands [place] Total: 13 - Physical Exam General Appearance: no apparent distress, alert Head Injury: no evidence of injury Eye Exam: PERRL/EOMI ENT Exam: airway nml Neck Exam: normal inspection, No tenderness Respiratory/Chest Exam: normal breath sounds, No chest tenderness, No respiratory distress Cardiovascular Exam: normal heart sounds, regular rate/rhythm Gastrointestinal Exam: soft, No tenderness, No distention, No guarding, No ecchymosis Back Exam: normal inspection, No vertebral tenderness Extremity Exam: normal inspection, normal range of motion, pelvis stable, No deformities Neurologic Exam: cooperative, disoriented, confusion, No motor deficits Skin Exam: normal color, warm, dry SpO2 Interpretation: normal SpO2: 94 O2 Delivery: Room Air - Course Nursing assessment & vital signs reviewed: Yes EKG Interpreted by Me: RATE (65), Sinus Rhythm, NORMAL AXIS, NORMAL INTERVALS, NORMAL QRS, NORMAL ST-T - CT Exams Head CT Interpretation: Tele-radiologist Report Ordered Tests: Active Orders 24 hr Category Date Time Status EKG-ER Only STAT Care 06/19/21 13:44 Active CHEST 1 VIEW (PORTABLE) Stat Exams 06/19/21 13:45 Taken HEAD WITHOUT CONTRAST [CT] Stat Exams 06/19/21 13:43 Taken BLOOD CULTURE Stat Lab 06/19/21 13:45 Received CBC W DIFF Stat Lab 06/19/21 13:55 Completed CMP Stat Lab 06/19/21 13:55 Completed LIPASE Stat Lab 06/19/21 13:55 Completed Lactic Acid Routine Lab 06/19/21 15:08 Completed Lactic Acid Stat Lab 06/19/21 14:07 Completed MAGNESIUM Stat Lab 06/19/21 13:55 Completed NT PRO BNP Stat Lab 06/19/21 13:55 Completed TROPONIN Q3H Lab 06/19/21 13:55 Completed TROPONIN Q3H Lab 06/19/21 16:45 Ordered TROPONIN Q3H Lab 06/19/21 19:45 Ordered TROPONIN Q3H Lab 06/19/21 22:45 Ordered TROPONIN Q3H Lab 06/20/21 01:45 Ordered UA W/RFX UR CULTURE Stat Lab 06/19/21 13:45 Ordered Medication Summary Discontinued Medications Generic Name Dose Route Start Last Admin Trade Name Freq PRN Reason Stop Dose Admin Sodium Chloride 1,000 mls @ 999 mls/hr 06/19/21 13:44 06/19/21 14:59 Sodium Chloride 0.9% 1000 Ml IV 06/19/21 14:44 Infused .Q1H1M STA Infusion Sodium Chloride Confirm 06/19/21 13:55 Sodium Chloride 0.9% 1000 Ml Administered 06/19/21 13:56 Dose 1,000 mls @ ud .ROUTE .STK-MED ONE Lab/Rad Data: Laboratory Result Diagrams 06/19/21 13:55 06/19/21 13:55 Laboratory Results 06/19/21 06/19/21 06/19/21 Range/Units 15:08 14:07 13:55 WBC (4.0-10.5) K/mm3 RBC (4.1-5.4) M/mm3 Hgb (12.0-16.0) gm/dl Hct (35-47) % MCV (78-100) fl MCH (26-32) pg MCHC (32-36) g/dl RDW (11.5-14.0) % Plt Count (150-450) K/mm3 MPV (7.5-11.0) fl Gran % (36.0-66.0) % Eos # (Auto) (0-0.5) Absolute Lymphs (auto) (1.0-4.6) Absolute Monos (auto) (0.0-1.3) Lymphocytes % (24.0-44.0) % Monocytes % (0.0-12.0) % Eosinophils % (0.00-5.0) % Basophils % (0.0-0.4) % Absolute Granulocytes (1.4-6.9) Basophils # (0-0.4) Sodium (137-145) mmol/L Potassium (3.5-5.1) mmol/L Chloride (98-107) mmol/L Carbon Dioxide (22-30) mmol/L Anion Gap (5-15) MEQ/L BUN (7-17) mg/dL Creatinine (0.52-1.04) mg/dL Estimated GFR ML/MIN Glucose (74-106) mg/dL Lactic Acid 1.0 3.1 H (0.4-2.0) Calcium (8.4-10.2) mg/dL Magnesium (1.6-2.3) mg/dL Total Bilirubin (0.2-1.3) mg/dL AST (14-36) U/L ALT (0-35) U/L Alkaline Phosphatase (38-126) U/L Troponin I 0.015 (0.000-0.034) ng/mL NT-Pro-B Natriuret Pep (0-1800) pg/mL Serum Total Protein (6.3-8.2) g/dL Albumin (3.5-5.0) g/dL Lipase (23-300) U/L 06/19/21 06/19/21 Range/Units 13:55 13:55 WBC 3.9 L (4.0-10.5) K/mm3 RBC 3.53 L (4.1-5.4) M/mm3 Hgb 10.6 L (12.0-16.0) gm/dl Hct 32.0 L (35-47) % MCV 90.7 (78-100) fl MCH 30.0 (26-32) pg MCHC 33.1 (32-36) g/dl RDW 16.2 H (11.5-14.0) % Plt Count 218 (150-450) K/mm3 MPV 10.6 (7.5-11.0) fl Gran % 66.8 H (36.0-66.0) % Eos # (Auto) 0.04 (0-0.5) Absolute Lymphs (auto) 0.89 L (1.0-4.6) Absolute Monos (auto) 0.38 (0.0-1.3) Lymphocytes % 22.6 L (24.0-44.0) % Monocytes % 9.6 (0.0-12.0) % Eosinophils % 1.0 (0.00-5.0) % Basophils % 0.0 (0.0-0.4) % Absolute Granulocytes 2.63 (1.4-6.9) Basophils # 0 (0-0.4) Sodium 136 L (137-145) mmol/L Potassium 4.4 (3.5-5.1) mmol/L Chloride 111 H (98-107) mmol/L Carbon Dioxide 20 L (22-30) mmol/L Anion Gap 9.1 (5-15) MEQ/L BUN 20 H (7-17) mg/dL Creatinine 1.22 H (0.52-1.04) mg/dL Estimated GFR 45.0 ML/MIN Glucose 114 H (74-106) mg/dL Lactic Acid (0.4-2.0) Calcium 7.5 L (8.4-10.2) mg/dL Magnesium 1.6 (1.6-2.3) mg/dL Total Bilirubin 0.50 (0.2-1.3) mg/dL AST 19 (14-36) U/L ALT 14 (0-35) U/L Alkaline Phosphatase 62 (38-126) U/L Troponin I (0.000-0.034) ng/mL NT-Pro-B Natriuret Pep 699 (0-1800) pg/mL Serum Total Protein 4.8 L (6.3-8.2) g/dL Albumin 2.5 L (3.5-5.0) g/dL Lipase 123 (23-300) U/L - Progress Progress: unchanged - Departure Departure Disposition: Home Clinical Impression: Fall Condition: Stable Critical Care Time: No Referrals: DIANA VAZQUEZ [Primary Care Provider] - Follow up/PCP as directed Instructions: Preventing Falls
[2021-06-19 17:27] VITALS: BP 130/58; PULSE 60; O2SAT 98
--- NOTE | 2021-06-19 19:07 | XRAY ---
Indication: Status post fall. Multiple contiguous axial images obtained through the head without contrast. Comparison: May 05, 2021. Stable age-appropriate global atrophy, mild periventricular degenerative micro-ischemia, and small old left cerebellum infarct. No acute intracranial hemorrhage, abnormal extra-axial fluid collection, or mass effect. Fourth ventricle is midline without hydrocephalus. Bony calvarium intact. Visualized paranasal sinuses and mastoid air cells are clear. 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 Comment: Preliminary interpretation made by C. No critical discrepancy.
--- NOTE | 2021-06-19 19:09 | XRAY ---
Indication: Status post fall. Dementia. Comparison: May 05, 2021. Portable chest remains hyperinflated and clear with incidental right midlung calcified granuloma. Heart not enlarged again with arteriosclerotic aorta. Bony thorax intact again with osteopenia, degenerative changes, and left neck surgical clips. Impression: Continued nonacute chest with chronic features.
== END 2021-06-19 17:34 | disposition home or self-care (01) ==
LOC: ED 13:38
DX: Z91.81 History of falling (principal); F03.90 Unspecified dementia, unspecified severity, without behavioral disturbance, psychotic disturbance, mood disturbance, and anxiety; R03.1 Nonspecific low blood-pressure reading; E78.5 Hyperlipidemia, unspecified; I10 Essential (primary) hypertension; J44.9 Chronic obstructive pulmonary disease, unspecified
CPT/HCPCS: 36415; 70450; 71045; 80053; 83605; 83690; 83735; 83880; 84484; 85025; 87040; 93005; 96360; 99284